=== PATIENT | female | born 1960 | race African-American/Black ===

== ENCOUNTER 2018-09-26 10:02 | Emergency (ER) | payer OTHER, MEDICAID, SELFPAY ==
[2018-09-26 10:05] VITALS: BP 180/97; PULSE 75; RESP 20; TEMP 37; O2SAT 97; BMI 35.5
[2018-09-26 11:57] VITALS: BP 171/90; PULSE 58; RESP 15; O2SAT 97
--- NOTE | 2018-09-26 12:19 | ED.ABDPAIN ---
HPI - Abdominal Pain <ARCADIO Mojica-BC - Last Filed: 09/26/18 19:26> General Chief Complaint: Abdominal Pain Stated Complaint: states blood coming for rectum Time Seen by Provider: 09/26/18 12:06 Source: patient and family Mode of arrival: ambulatory Limitations: no limitations History of Present Illness HPI narrative: Patient is a 57-year-old female nonsmoker presents with her daughter with a chief complaint of epigastric pain radiating around her right and left side since yesterday. She complains of associated nausea but denies any vomiting, diarrhea, chest pain. She states that the pain starts in her epigastric area radiating around the sides but does not radiate anywhere else. She states that she was seen as an outpatient at [facility] in [place], diagnosed with a likely gastric ulcer and started on Prilosec. This occurred on Thursday and she had blood work done, but has not received the results yet. She also complains of bright red blood per rectum that started this morning. She denies any lightheadedness or dizziness, but states that the pain is an 8/10. She denies any fever, dysuria urgency or frequency. She denies any medical history or surgeries, but chart review illustrate a history of hypertension and chest pain. Related Data Previous Rx's Medication Instructions Recorded sucralfate 1 gram PO QACHS #40 tab 09/26/18 Allergies Allergy/AdvReac Type Severity Reaction Status Date / Time cyclobenzaprine Allergy Verified 09/26/18 10:28 [From Flexeril] chlorthalidone AdvReac Severe Polycythemi Verified 09/26/18 10:26 [CHLORTHALIDONE] a hydrochlorothiazide AdvReac Severe Polycythemi Verified 09/26/18 10:26 [HYDROCHLOROTHIAZIDE] a amoxicillin [From AUGMENTIN] AdvReac Intermediate diarrhea Verified 09/26/18 10:26 stomach cramping clavulanic acid AdvReac Intermediate diarrhea Verified 09/26/18 10:26 [From AUGMENTIN] stomach cramping Review of Systems <MARK ANTHONY Mojica - Last Filed: 09/26/18 19:26> Review of Systems GENERAL: Denies chills, fatigue, malaise, fever, sweats. HEENT: Denies sinus pain, ear pain, sore throat, difficulty swallowing, dizziness. RESPIRATORY: Denies dyspnea, cough, wheezing, hemoptysis, sputum. CARDIOVASCULAR: Denies chest pain, palpitations, orthopnea, edema, GASTROINTESTINAL: See HPI : Denies dysuria, frequency, incontinence, hematuria, urinary retention. MUSCULOSKELETAL: denies weakness, joint pain, or bony pain SKIN: Denies rash, skin lesions, or other NEUROLOGIC: Denies weakness, headache, numbness, change in speech, confusion, seizures, incoordination. PSYCHIATRIC: No concerning psychosocial issues. 12 point review of systems is negative except for those stated above Exam <Joi Urban, ORTHOTICS TECHNICIAN-BC - Last Filed: 09/26/18 19:26> Narrative Exam Narrative: GENERAL: This is a obese patient, in mild distress. HEAD: Atraumatic. Normocephalic. No temporal or scalp tenderness. EYES: Pupils equal round and reactive. Extraocular motions intact. No scleral icterus. No injection or drainage. ENT: Nose without bleeding, purulent drainage or septal hematoma. Throat without erythema, tonsillar hypertrophy or exudate. Uvula midline. Airway patent. NECK: Trachea midline. No JVD or lymphadenopathy. Supple, nontender, no meningeal signs. CARDIOVASCULAR: Regular rate and rhythm without murmurs, gallops, or rubs. RESPIRATORY: Clear to auscultation. Breath sounds equal bilaterally. No wheezes, rales, or rhonchi. GASTROINTESTINAL: Active bowel sounds all 4 quadrants. Abdomen soft, nondistended. No hepato-splenomegaly, or palpable masses. Pain on palpation epigastric area, right upper quadrant and left upper quadrant. No pain on palpation right lower or left lower quadrants or suprapubic area. Positive [place] sign. No anal fissure, external hemorrhoid on rectal exam. No bessie red blood on rectal exam or palpable internal hemorrhoids. Rectal exam performed with Jannet RN as slat pickler. EXTREMITIES: No clubbing, cyanosis, or edema. No joint tenderness, effusion, or edema noted. BACK: Nontender without deformity or crepitance. No flank tenderness. NEURO: AOx3. SKIN: No rash or erythema. Initial Vital Signs Initial Vital Signs: Vital Signs Temperature 98.6 F 09/26/18 10:05 Pulse Rate 75 09/26/18 10:05 Respiratory Rate 20 09/26/18 10:05 Blood Pressure 180/97 H 09/26/18 10:05 Pulse Oximetry 97 09/26/18 10:05 <Ezio Gilman DO - Last Filed: 10/02/18 07:06> Initial Vital Signs Initial Vital Signs: Vital Signs Temperature 98.6 F 09/26/18 10:05 Pulse Rate 75 09/26/18 10:05 Respiratory Rate 20 09/26/18 10:05 Blood Pressure 180/97 H 09/26/18 10:05 Pulse Oximetry 97 09/26/18 10:05 Procedures <MARK ANTHONY Mojica - Last Filed: 09/26/18 19:26> Stool Hemoccult Procedural Steps Taken: stool placed in appropriate test area, developer placed on stool and control areas and controls appropriately positive and negative Hemoccult result: negative Course <MARK ANTHONY Mojica - Last Filed: 09/26/18 19:26> Course Narrative: I checked on the patient several times throughout her stay in the emergency department. Given her heme-negative stool, I discussed the possibility that the blood was coming from her vagina rather than her rectum. We discussed the possibility that could be vaginal, but she does not have any blood in her urine. We discussed doing a pelvic exam to evaluate for vaginal bleeding, but she declined at this point time saying she would rather follow up with her primary care provider. Orders Ordered: Discontinued Medications Al Hydrox/Mg Hydrox/Simethicone 20 ml/ Lidocaine HCl 15 ml 0 ml PO NOW ONE Stop: 09/26/18 13:23 Last Admin: 09/26/18 13:31 Dose: 35 ml Pantoprazole Sodium (Protonix) 40 mg IV NOW ONE Stop: 09/26/18 13:23 Last Admin: 09/26/18 13:31 Dose: 40 mg Vital Signs - 8 hr 09/26/18 11:57 09/26/18 13:00 09/26/18 14:00 Pulse Rate 58 L 60 67 Respiratory Rate 15 22 20 Blood Pressure [Left Arm] 171/90 H 124/86 138/75 Pulse Oximetry 97 97 99 09/26/18 15:30 Pulse Rate 61 Respiratory Rate 20 Blood Pressure [Left Arm] 150/83 H Pulse Oximetry <Ezio Gilman DO - Last Filed: 10/02/18 07:06> Orders Ordered: Discontinued Medications Al Hydrox/Mg Hydrox/Simethicone 20 ml/ Lidocaine HCl 15 ml 0 ml PO NOW ONE Stop: 09/26/18 13:23 Last Admin: 09/26/18 13:31 Dose: 35 ml Pantoprazole Sodium (Protonix) 40 mg IV NOW ONE Stop: 09/26/18 13:23 Last Admin: 09/26/18 13:31 Dose: 40 mg Vital Signs - 8 hr 09/26/18 11:57 09/26/18 13:00 09/26/18 14:00 Pulse Rate 58 L 60 67 Respiratory Rate 15 22 20 Blood Pressure [Left Arm] 171/90 H 124/86 138/75 Pulse Oximetry 97 97 99 09/26/18 15:30 Pulse Rate 61 Respiratory Rate 20 Blood Pressure [Left Arm] 150/83 H Pulse Oximetry MDM - Abdominal Pain <ARCADIO Mojica- - Last Filed: 09/26/18 19:26> Lab Data Result diagrams: 09/26/18 12:45 09/26/18 12:45 Lab Results 09/26/18 09/26/18 09/26/18 Range/Units 12:45 12:45 12:45 WBC 4.0 L (4.5-11.0) X10^3/uL RBC 5.43 H (4.0-5.2) X10^6/uL Hgb 14.8 (12.0-16.0) g/dL Hct 43.7 (36-46) % MCV 80.6 (80-100) fL MCH 27.3 (26-34) PG MCHC 33.9 (30-36) % RDW 13.4 (11.6-14.8) % Plt Count 214 (150-400) X10^3/uL Neut % (Auto) 52.1 (50-75) % Lymph % (Auto) 37.1 (25-40) % Tate % (Auto) 9.0 (3-14) % Eos % (Auto) 1.2 L (2-4) % Baso % (Auto) 0.6 (0-2) % Neut # (Auto) 2100 (8373-6989) /uL Lymph # (Auto) 1500 (5544-0773) /uL Tate # (Auto) 400 (0-900) /uL Eos # (Auto) 100 (0-450) /uL Baso # (Auto) 0 (0-100) /uL PT (10.1-12.7) SECONDS INR (0.9-1.3) Sodium 143 (137-145) mmol/L Potassium 4.2 (3.4-5.1) mmol/L Chloride 104 (98-107) mmol/L Carbon Dioxide 28 (22-32) mmol/L BUN 6 L (7-17) mg/dL Creatinine 0.60 (0.52-1.04) mg/dL Estimated GFR > 60.0 (>60) mL/min BUN/Creatinine Ratio 10.0 (6-22) Glucose 100 (70-100) mg/dL Calcium 9.2 (8.4-10.2) mg/dL Total Bilirubin 0.6 (0.2-1.3) mg/dL AST 21 (14-36) IU/L ALT 27 (9-52) IU/L Alkaline Phosphatase 114 (38-126) U/L Total Creatine Kinase (30-135) U/L CK-MB (CK-2) CK-MB (CK-2) Rel Index Troponin I (0.01-0.034) ng/mL Total Protein 8.0 (6.3-8.2) g/dL Albumin 4.3 (3.5-5.0) g/dL Globulin 3.7 (1.7-4.1) g/dL Albumin/Globulin Ratio 1.2 (1.0-2.8) Amylase Cancelled 78 Lipase 91 (23-300) U/L 09/26/18 09/26/18 Range/Units 12:45 12:45 WBC (4.5-11.0) X10^3/uL RBC (4.0-5.2) X10^6/uL Hgb (12.0-16.0) g/dL Hct (36-46) % MCV (80-100) fL MCH (26-34) PG MCHC (30-36) % RDW (11.6-14.8) % Plt Count (150-400) X10^3/uL Neut % (Auto) (50-75) % Lymph % (Auto) (25-40) % Tate % (Auto) (3-14) % Eos % (Auto) (2-4) % Baso % (Auto) (0-2) % Neut # (Auto) (3819-6880) /uL Lymph # (Auto) (5698-5737) /uL Tate # (Auto) (0-900) /uL Eos # (Auto) (0-450) /uL Baso # (Auto) (0-100) /uL PT 12.5 (10.1-12.7) SECONDS INR 1.1 (0.9-1.3) Sodium (137-145) mmol/L Potassium (3.4-5.1) mmol/L Chloride (98-107) mmol/L Carbon Dioxide (22-32) mmol/L BUN (7-17) mg/dL Creatinine (0.52-1.04) mg/dL Estimated GFR (>60) mL/min BUN/Creatinine Ratio (6-22) Glucose (70-100) mg/dL Calcium (8.4-10.2) mg/dL Total Bilirubin (0.2-1.3) mg/dL AST (14-36) IU/L ALT (9-52) IU/L Alkaline Phosphatase (38-126) U/L Total Creatine Kinase 64 (30-135) U/L CK-MB (CK-2) TNP CK-MB (CK-2) Rel Index TNP Troponin I < 0.012 (0.01-0.034) ng/mL Total Protein (6.3-8.2) g/dL Albumin (3.5-5.0) g/dL Globulin (1.7-4.1) g/dL Albumin/Globulin Ratio (1.0-2.8) Amylase Lipase (23-300) U/L Point of care testing: Urine Dip Bedside Urine Glucose Negative Bedside Urine Bilirubin - Negative Bedside Urine Ketone - Negative Urine Specific [place] 1.010 Bedside Urine Occult Blood - Negative Bedside Urine pH 8.5 Bedside Urine Protein - Negative Bedside Urine Urobilinogen - Negative Bedside Urine Nitrite - Negative Bedside Urine Leukocytes - Negative Esterase Imaging Data US - abdomen: Radiologist's impression: [address] [address] Ultrasound Report Signed Patient: Mirta Cerda CMR#: [id number] : 1Acct:[id number] Age/Sex: 57 / FDate of Service: 09/26/18 Loc: ED Accession Number: [id number] Procedure: US abdomen complete Ordering Provider: Joi Urban ORTHOTICS TECHNICIAN-BC PROCEDURE: US ABDOMEN COMPLETE INDICATIONS: epigastric, RUQ pain TECHNIQUE: Real-time scanning was performed of the abdominal and retroperitoneal organs, with image documentation. COMPARISON: [facility], CT, PE STUDY (CTA CHEST), 07/11/2013, 9:51. FINDINGS: Liver: Liver is normal in size and demonstrates diffusely increased echotexture. Gallbladder: No gallstones. No gallbladder wall thickening, pericholecystic fluid or sonographic Cheng's sign. Biliary ducts: Intrahepatic bile ducts are non-dilated. Extrahepatic bile duct caliber measures 7 mm. Normal is 6-7 mm or less in diameter, or 10 mm or less post-cholecystectomy. Pancreas: Visualized portions of the pancreas are sonographically normal. Spleen: Spleen is normal in size and homogeneous in echotexture. Kidneys: Kidneys are normal in size and echotexture. Right kidney measures 12.3 cm long; left kidney measures 14.0 cm long. No hydronephrosis or nephrolithiasis. No solid masses. Aorta: Visualized aorta is normal in caliber at less than 3 cm. Iliacs: Proximal common iliac arteries are obscured by overlying bowel gas. IVC: Intrahepatic inferior vena cava is patent. Miscellaneous: No free abdominal fluid. IMPRESSION: 1. Diffusely increased hepatic echotexture. This finding is most likely secondary to hepatic fatty infiltration although other hepatocellular disease may have a similar appearance. Recommend clinical correlation. 2. Normal gallbladder. Dictated by: Galen Joshi M.D. on 09/26/2018 at 14:13 Approved by: Galen Joshi M.D. on 09/26/2018 at 14:15 ECG Data Attestation: I personally reviewed and interpreted this ECG as follows: Prior ECG tracings: available for review Interpretation: VENTRICULAR RATE 54. SINUS BRADYCARDIA. NO ECTOPY. NO ST ELEVATION OR DEPRESSION. MDM Narrative Medical decision making narrative: The patient presented with a chief complaint of abdominal pain and bright red blood per rectum. We did a CBC, CMP, amylase and lipase. Given her positive Cheng sign, a right upper quadrant ultrasound was done which showed a normal gallbladder. She did respond well to a GI cocktail and IV Protonix. She did not have any heme-positive stool on rectal exam. She remained hemodynamically stable throughout her stay in the emergency department, did not have a low H&H, was not tachycardic or hypotensive throughout. We discussed at length dietary changes including decreased acid, decrease coffee fried food or citrus. We discussed decreased spicy food. We discussed at length follow up with primary care provider as well as follow-up with GI on the as previously arranged. Patient had no questions or concerns upon discharge. We discussed at length return precautions to the emergency department including chest pain shortness of breath or acute concerns. Given that she is already on omeprazole, we decided to initiate Carafate q.i.d. at this point time. Patient family had no questions or concerns. She ambulated steadily outside of the emergency department. <Ezio Gilman, DO - Last Filed: 10/02/18 07:06> Lab Data Lab Results 09/26/18 09/26/18 09/26/18 Range/Units 12:45 12:45 12:45 WBC 4.0 L (4.5-11.0) X10^3/uL RBC 5.43 H (4.0-5.2) X10^6/uL Hgb 14.8 (12.0-16.0) g/dL Hct 43.7 (36-46) % MCV 80.6 (80-100) fL MCH 27.3 (26-34) PG MCHC 33.9 (30-36) % RDW 13.4 (11.6-14.8) % Plt Count 214 (150-400) X10^3/uL Neut % (Auto) 52.1 (50-75) % Lymph % (Auto) 37.1 (25-40) % Tate % (Auto) 9.0 (3-14) % Eos % (Auto) 1.2 L (2-4) % Baso % (Auto) 0.6 (0-2) % Neut # (Auto) 2100 (0035-4839) /uL Lymph # (Auto) 1500 (2255-7760) /uL Tate # (Auto) 400 (0-900) /uL Eos # (Auto) 100 (0-450) /uL Baso # (Auto) 0 (0-100) /uL PT (10.1-12.7) SECONDS INR (0.9-1.3) Sodium 143 (137-145) mmol/L Potassium 4.2 (3.4-5.1) mmol/L Chloride 104 (98-107) mmol/L Carbon Dioxide 28 (22-32) mmol/L BUN 6 L (7-17) mg/dL Creatinine 0.60 (0.52-1.04) mg/dL Estimated GFR > 60.0 (>60) mL/min BUN/Creatinine Ratio 10.0 (6-22) Glucose 100 (70-100) mg/dL Calcium 9.2 (8.4-10.2) mg/dL Total Bilirubin 0.6 (0.2-1.3) mg/dL AST 21 (14-36) IU/L ALT 27 (9-52) IU/L Alkaline Phosphatase 114 (38-126) U/L Total Creatine Kinase (30-135) U/L CK-MB (CK-2) CK-MB (CK-2) Rel Index Troponin I (0.01-0.034) ng/mL Total Protein 8.0 (6.3-8.2) g/dL Albumin 4.3 (3.5-5.0) g/dL Globulin 3.7 (1.7-4.1) g/dL Albumin/Globulin Ratio 1.2 (1.0-2.8) Amylase Cancelled 78 Lipase 91 (23-300) U/L 09/26/18 09/26/18 Range/Units 12:45 12:45 WBC (4.5-11.0) X10^3/uL RBC (4.0-5.2) X10^6/uL Hgb (12.0-16.0) g/dL Hct (36-46) % MCV (80-100) fL MCH (26-34) PG MCHC (30-36) % RDW (11.6-14.8) % Plt Count (150-400) X10^3/uL Neut % (Auto) (50-75) % Lymph % (Auto) (25-40) % Tate % (Auto) (3-14) % Eos % (Auto) (2-4) % Baso % (Auto) (0-2) % Neut # (Auto) (1959-6809) /uL Lymph # (Auto) (6455-6415) /uL Tate # (Auto) (0-900) /uL Eos # (Auto) (0-450) /uL Baso # (Auto) (0-100) /uL PT 12.5 (10.1-12.7) SECONDS INR 1.1 (0.9-1.3) Sodium (137-145) mmol/L Potassium (3.4-5.1) mmol/L Chloride (98-107) mmol/L Carbon Dioxide (22-32) mmol/L BUN (7-17) mg/dL Creatinine (0.52-1.04) mg/dL Estimated GFR (>60) mL/min BUN/Creatinine Ratio (6-22) Glucose (70-100) mg/dL Calcium (8.4-10.2) mg/dL Total Bilirubin (0.2-1.3) mg/dL AST (14-36) IU/L ALT (9-52) IU/L Alkaline Phosphatase (38-126) U/L Total Creatine Kinase 64 (30-135) U/L CK-MB (CK-2) TNP CK-MB (CK-2) Rel Index TNP Troponin I < 0.012 (0.01-0.034) ng/mL Total Protein (6.3-8.2) g/dL Albumin (3.5-5.0) g/dL Globulin (1.7-4.1) g/dL Albumin/Globulin Ratio (1.0-2.8) Amylase Lipase (23-300) U/L Point of care testing: Urine Dip Bedside Urine Glucose Negative Bedside Urine Bilirubin - Negative Bedside Urine Ketone - Negative Urine Specific [place] 1.010 Bedside Urine Occult Blood - Negative Bedside Urine pH 8.5 Bedside Urine Protein - Negative Bedside Urine Urobilinogen - Negative Bedside Urine Nitrite - Negative Bedside Urine Leukocytes - Negative Esterase Discharge Plan Departure Patient Disposition: Home Clinical Impression: Abdominal pain, Gastroesophageal reflux disease Discharge Date/Time: 09/26/18 16:13 Interventions: ED Discharge Assessment Last Done: 09/26/18 16:12 Instructions: Gastroesophageal Reflux Disease (Alternative Therapy), DI for Gastroesophageal Reflux Disease (GERD), DI for Abdominal Pain-Adult Activity Restrictions/Additional Instructions: Your labs came back normal today and your EKG looks good. You responded well to an acid reduction medication, so I am adding another acid medication to the medication you are already take for your suspected ulcer and acid. Please pay careful attention to her diet. Please follow-up with your primary care provider as soon as possible and follow up with your principal embedded software engineer as scheduled. If you have any acute concerns including sudden worsening terrible abdominal pain, chest pain or shortness of breath or concerned about heart attack or stroke please come back to the emergency department. Prescriptions: New sucralfate 1 gram tablet 1 gram PO QACHS Qty: 40 RF: 0 Referrals: Apple Abraham PA-C [Primary Care Provider] - <Ezio Gilman DO - Last Filed: 10/02/18 07:06> Cosign ED Attending Jonathan Attestation: I was available for consultation during this patient's emergency department encounter
--- NOTE | 2018-09-26 12:22 | ED_ITS ---
HPI - Abdominal Pain <ARCADIO Mojica-BC - Last Filed: 09/26/18 19:26> General Chief Complaint: Abdominal Pain Stated Complaint: states blood coming for rectum Time Seen by Provider: 09/26/18 12:06 Source: patient and family Mode of arrival: ambulatory Limitations: no limitations History of Present Illness HPI narrative: Patient is a 57-year-old female nonsmoker presents with her daughter with a chief complaint of epigastric pain radiating around her right and left side since yesterday. She complains of associated nausea but denies any vomiting, diarrhea, chest pain. She states that the pain starts in her epigastric area radiating around the sides but does not radiate anywhere else. She states that she was seen as an outpatient at [facility] in [place], diagnosed with a likely gastric ulcer and started on Prilosec. This occurred on Thursday and she had blood work done, but has not received the results yet. She also complains of bright red blood per rectum that started this morning. She denies any lightheadedness or dizziness, but states that the pain is an 8/ 10. She denies any fever, dysuria urgency or frequency. She denies any medical history or surgeries, but chart review illustrate a history of hypertension and chest pain. Related Data Previous Rx's Medication Instructions Recorded sucralfate 1 gram PO QACHS #40 tab 09/26/18 Allergies Allergy/AdvReac Type Severity Reaction Status Date / Time cyclobenzaprine Allergy Verified 09/26/18 10:28 [From Flexeril] chlorthalidone AdvReac Severe Polycythemi Verified 09/26/18 10:26 [CHLORTHALIDONE] a hydrochlorothiazide AdvReac Severe Polycythemi Verified 09/26/18 10:26 [HYDROCHLOROTHIAZIDE] a amoxicillin [From AUGMENTIN] AdvReac Intermediate diarrhea Verified 09/26/18 10: 26 stomach cramping clavulanic acid AdvReac Intermediate diarrhea Verified 09/26/18 10:26 [From AUGMENTIN] stomach cramping Review of Systems <MARK ANTHONY Mojica - Last Filed: 09/26/18 19:26> Review of Systems GENERAL: Denies chills, fatigue, malaise, fever, sweats. HEENT: Denies sinus pain, ear pain, sore throat, difficulty swallowing, dizziness. RESPIRATORY: Denies dyspnea, cough, wheezing, hemoptysis, sputum. CARDIOVASCULAR: Denies chest pain, palpitations, orthopnea, edema, GASTROINTESTINAL: See HPI : Denies dysuria, frequency, incontinence, hematuria, urinary retention. MUSCULOSKELETAL: denies weakness, joint pain, or bony pain SKIN: Denies rash, skin lesions, or other NEUROLOGIC: Denies weakness, headache, numbness, change in speech, confusion, seizures, incoordination. PSYCHIATRIC: No concerning psychosocial issues. 12 point review of systems is negative except for those stated above Exam <Joi Urban, EMPLOYMENT EVALUATOR/CASE MANAGER-BC - Last Filed: 09/26/18 19:26> Narrative Exam Narrative: GENERAL: This is a obese patient, in mild distress. HEAD: Atraumatic. Normocephalic. No temporal or scalp tenderness. EYES: Pupils equal round and reactive. Extraocular motions intact. No scleral icterus. No injection or drainage. ENT: Nose without bleeding, purulent drainage or septal hematoma. Throat without erythema, tonsillar hypertrophy or exudate. Uvula midline. Airway patent. NECK: Trachea midline. No JVD or lymphadenopathy. Supple, nontender, no meningeal signs. CARDIOVASCULAR: Regular rate and rhythm without murmurs, gallops, or rubs. RESPIRATORY: Clear to auscultation. Breath sounds equal bilaterally. No wheezes , rales, or rhonchi. GASTROINTESTINAL: Active bowel sounds all 4 quadrants. Abdomen soft, nondistended. No hepato-splenomegaly, or palpable masses. Pain on palpation epigastric area, right upper quadrant and left upper quadrant. No pain on palpation right lower or left lower quadrants or suprapubic area. Positive [place] sign. No anal fissure, external hemorrhoid on rectal exam. No bessie red blood on rectal exam or palpable internal hemorrhoids. Rectal exam performed with Jannet RN as roll tension tester. EXTREMITIES: No clubbing, cyanosis, or edema. No joint tenderness, effusion, or edema noted. BACK: Nontender without deformity or crepitance. No flank tenderness. NEURO: AOx3. SKIN: No rash or erythema. Initial Vital Signs Initial Vital Signs: Vital Signs Temperature 98.6 F 09/26/18 10:05 Pulse Rate 75 09/26/18 10:05 Respiratory Rate 20 09/26/18 10:05 Blood Pressure 180/97 H 09/26/18 10:05 Pulse Oximetry 97 09/26/18 10:05 <Ezio Gilman DO - Last Filed: 10/02/18 07:06> Initial Vital Signs Initial Vital Signs: Vital Signs Temperature 98.6 F 09/26/18 10:05 Pulse Rate 75 09/26/18 10:05 Respiratory Rate 20 09/26/18 10:05 Blood Pressure 180/97 H 09/26/18 10:05 Pulse Oximetry 97 09/26/18 10:05 Procedures <MARK ANTHONY Mojica - Last Filed: 09/26/18 19:26> Stool Hemoccult Procedural Steps Taken: stool placed in appropriate test area, developer placed on stool and control areas and controls appropriately positive and negative Hemoccult result: negative Course <MARK ANTHONY Mojica - Last Filed: 09/26/18 19:26> Course Narrative: I checked on the patient several times throughout her stay in the emergency department. Given her heme-negative stool, I discussed the possibility that the blood was coming from her vagina rather than her rectum. We discussed the possibility that could be vaginal, but she does not have any blood in her urine. We discussed doing a pelvic exam to evaluate for vaginal bleeding, but she declined at this point time saying she would rather follow up with her primary care provider. Orders Ordered: Discontinued Medications Al Hydrox/Mg Hydrox/Simethicone 20 ml/ Lidocaine HCl 15 ml 0 ml PO NOW ONE Stop: 09/26/18 13:23 Last Admin: 09/26/18 13:31 Dose: 35 ml Pantoprazole Sodium (Protonix) 40 mg IV NOW ONE Stop: 09/26/18 13:23 Last Admin: 09/26/18 13:31 Dose: 40 mg Vital Signs - 8 hr 09/26/18 11:57 09/26/18 13:00 09/26/18 14:00 Pulse Rate 58 L 60 67 Respiratory Rate 15 22 20 Blood Pressure [Left Arm] 171/90 H 124/86 138/75 Pulse Oximetry 97 97 99 09/26/18 15:30 Pulse Rate 61 Respiratory Rate 20 Blood Pressure [Left Arm] 150/83 H Pulse Oximetry <Ezio Gilman DO - Last Filed: 10/02/18 07:06> Orders Ordered: Discontinued Medications Al Hydrox/Mg Hydrox/Simethicone 20 ml/ Lidocaine HCl 15 ml 0 ml PO NOW ONE Stop: 09/26/18 13:23 Last Admin: 09/26/18 13:31 Dose: 35 ml Pantoprazole Sodium (Protonix) 40 mg IV NOW ONE Stop: 09/26/18 13:23 Last Admin: 09/26/18 13:31 Dose: 40 mg Vital Signs - 8 hr 09/26/18 11:57 09/26/18 13:00 09/26/18 14:00 Pulse Rate 58 L 60 67 Respiratory Rate 15 22 20 Blood Pressure [Left Arm] 171/90 H 124/86 138/75 Pulse Oximetry 97 97 99 09/26/18 15:30 Pulse Rate 61 Respiratory Rate 20 Blood Pressure [Left Arm] 150/83 H Pulse Oximetry MDM - Abdominal Pain <ARCADIO Mojica- - Last Filed: 09/26/18 19:26> Lab Data Result diagrams: 09/26/18 12:45 09/26/18 12:45 Lab Results 09/26/18 09/26/18 09/26/18 Range/Units 12:45 12:45 12:45 WBC 4.0 L (4.5-11.0) X10^3/uL RBC 5.43 H (4.0-5.2) X10^6/uL Hgb 14.8 (12.0-16.0) g/dL Hct 43.7 (36-46) % MCV 80.6 (80-100) fL MCH 27.3 (26-34) PG MCHC 33.9 (30-36) % RDW 13.4 (11.6-14.8) % Plt Count 214 (150-400) X10^3/uL Neut % (Auto) 52.1 (50-75) % Lymph % (Auto) 37.1 (25-40) % Tift % (Auto) 9.0 (3-14) % Eos % (Auto) 1.2 L (2-4) % Baso % (Auto) 0.6 (0-2) % Neut # (Auto) 2100 (2177-0047) /uL Lymph # (Auto) 1500 (9662-6976) /uL Tift # (Auto) 400 (0-900) /uL Eos # (Auto) 100 (0-450) /uL Baso # (Auto) 0 (0-100) /uL PT (10.1-12.7) SECONDS INR (0.9-1.3) Sodium 143 (137-145) mmol/L Potassium 4.2 (3.4-5.1) mmol/L Chloride 104 (98-107) mmol/L Carbon Dioxide 28 (22-32) mmol/L BUN 6 L (7-17) mg/dL Creatinine 0.60 (0.52-1.04) mg/dL Estimated GFR > 60.0 (>60) mL/min BUN/Creatinine Ratio 10.0 (6-22) Glucose 100 (70-100) mg/dL Calcium 9.2 (8.4-10.2) mg/dL Total Bilirubin 0.6 (0.2-1.3) mg/dL AST 21 (14-36) IU/L ALT 27 (9-52) IU/L Alkaline Phosphatase 114 (38-126) U/L Total Creatine Kinase (30-135) U/L CK-MB (CK-2) CK-MB (CK-2) Rel Index Troponin I (0.01-0.034) ng/mL Total Protein 8.0 (6.3-8.2) g/dL Albumin 4.3 (3.5-5.0) g/dL Globulin 3.7 (1.7-4.1) g/dL Albumin/Globulin Ratio 1.2 (1.0-2.8) Amylase Cancelled 78 Lipase 91 (23-300) U/L 09/26/18 09/26/18 Range/Units 12:45 12:45 WBC (4.5-11.0) X10^3/uL RBC (4.0-5.2) X10^6/uL Hgb (12.0-16.0) g/dL Hct (36-46) % MCV (80-100) fL MCH (26-34) PG MCHC (30-36) % RDW (11.6-14.8) % Plt Count (150-400) X10^3/uL Neut % (Auto) (50-75) % Lymph % (Auto) (25-40) % Tift % (Auto) (3-14) % Eos % (Auto) (2-4) % Baso % (Auto) (0-2) % Neut # (Auto) (4163-8394) /uL Lymph # (Auto) (7672-3028) /uL Tift # (Auto) (0-900) /uL Eos # (Auto) (0-450) /uL Baso # (Auto) (0-100) /uL PT 12.5 (10.1-12.7) SECONDS INR 1.1 (0.9-1.3) Sodium (137-145) mmol/L Potassium (3.4-5.1) mmol/L Chloride (98-107) mmol/L Carbon Dioxide (22-32) mmol/L BUN (7-17) mg/dL Creatinine (0.52-1.04) mg/dL Estimated GFR (>60) mL/min BUN/Creatinine Ratio (6-22) Glucose (70-100) mg/dL Calcium (8.4-10.2) mg/dL Total Bilirubin (0.2-1.3) mg/dL AST (14-36) IU/L ALT (9-52) IU/L Alkaline Phosphatase (38-126) U/L Total Creatine Kinase 64 (30-135) U/L CK-MB (CK-2) TNP CK-MB (CK-2) Rel Index TNP Troponin I < 0.012 (0.01-0.034) ng/mL Total Protein (6.3-8.2) g/dL Albumin (3.5-5.0) g/dL Globulin (1.7-4.1) g/dL Albumin/Globulin Ratio (1.0-2.8) Amylase Lipase (23-300) U/L Point of care testing: Urine Dip Bedside Urine Glucose Negative Bedside Urine Bilirubin - Negative Bedside Urine Ketone - Negative Urine Specific [place] 1.010 Bedside Urine Occult Blood - Negative Bedside Urine pH 8.5 Bedside Urine Protein - Negative Bedside Urine Urobilinogen - Negative Bedside Urine Nitrite - Negative Bedside Urine Leukocytes - Negative Esterase Imaging Data US - abdomen: Radiologist's impression: [address] [address] Ultrasound Report Signed Patient: Mirta Cerda CMR#: [id number] : 1Acct:[id number] Age/Sex: 57 / FDate of Service: 09/26/18 Loc: ED Accession Number: [id number] Procedure: US abdomen complete Ordering Provider: Joi Urban EMPLOYMENT EVALUATOR/CASE MANAGER-BC PROCEDURE: US ABDOMEN COMPLETE INDICATIONS: epigastric, RUQ pain TECHNIQUE: Real-time scanning was performed of the abdominal and retroperitoneal organs, with image documentation. COMPARISON: Merged With [facility], CT, PE STUDY (CTA CHEST), 07/11/2013, 9:51. FINDINGS: Liver: Liver is normal in size and demonstrates diffusely increased echotexture. Gallbladder: No gallstones. No gallbladder wall thickening, pericholecystic fluid or sonographic Cheng's sign. Biliary ducts: Intrahepatic bile ducts are non-dilated. Extrahepatic bile duct caliber measures 7 mm. Normal is 6-7 mm or less in diameter, or 10 mm or less post-cholecystectomy. Pancreas: Visualized portions of the pancreas are sonographically normal. Spleen: Spleen is normal in size and homogeneous in echotexture. Kidneys: Kidneys are normal in size and echotexture. Right kidney measures 12.3 cm long; left kidney measures 14.0 cm long. No hydronephrosis or nephrolithiasis. No solid masses. Aorta: Visualized aorta is normal in caliber at less than 3 cm. Iliacs: Proximal common iliac arteries are obscured by overlying bowel gas. IVC: Intrahepatic inferior vena cava is patent. Miscellaneous: No free abdominal fluid. IMPRESSION: 1. Diffusely increased hepatic echotexture. This finding is most likely secondary to hepatic fatty infiltration although other hepatocellular disease may have a similar appearance. Recommend clinical correlation. 2. Normal gallbladder. Dictated by: Galen Joshi M.D. on 09/26/2018 at 14:13 Approved by: Galen Joshi M.D. on 09/26/2018 at 14:15 ECG Data Attestation: I personally reviewed and interpreted this ECG as follows: Prior ECG tracings: available for review Interpretation: VENTRICULAR RATE 54. SINUS BRADYCARDIA. NO ECTOPY. NO ST ELEVATION OR DEPRESSION. MDM Narrative Medical decision making narrative: The patient presented with a chief complaint of abdominal pain and bright red blood per rectum. We did a CBC, CMP, amylase and lipase. Given her positive Cheng sign, a right upper quadrant ultrasound was done which showed a normal gallbladder. She did respond well to a GI cocktail and IV Protonix. She did not have any heme-positive stool on rectal exam. She remained hemodynamically stable throughout her stay in the emergency department, did not have a low H&H, was not tachycardic or hypotensive throughout. We discussed at length dietary changes including decreased acid, decrease coffee fried food or citrus. We discussed decreased spicy food. We discussed at length follow up with primary care provider as well as follow-up with GI on the as previously arranged. Patient had no questions or concerns upon discharge. We discussed at length return precautions to the emergency department including chest pain shortness of breath or acute concerns. Given that she is already on omeprazole, we decided to initiate Carafate q.i.d. at this point time. Patient family had no questions or concerns. She ambulated steadily outside of the emergency department. <Ezio Gilman, DO - Last Filed: 10/02/18 07:06> Lab Data Lab Results 09/26/18 09/26/18 09/26/18 Range/Units 12:45 12:45 12:45 WBC 4.0 L (4.5-11.0) X10^3/uL RBC 5.43 H (4.0-5.2) X10^6/uL Hgb 14.8 (12.0-16.0) g/dL Hct 43.7 (36-46) % MCV 80.6 (80-100) fL MCH 27.3 (26-34) PG MCHC 33.9 (30-36) % RDW 13.4 (11.6-14.8) % Plt Count 214 (150-400) X10^3/uL Neut % (Auto) 52.1 (50-75) % Lymph % (Auto) 37.1 (25-40) % Tift % (Auto) 9.0 (3-14) % Eos % (Auto) 1.2 L (2-4) % Baso % (Auto) 0.6 (0-2) % Neut # (Auto) 2100 (2321-7123) /uL Lymph # (Auto) 1500 (2814-5572) /uL Tift # (Auto) 400 (0-900) /uL Eos # (Auto) 100 (0-450) /uL Baso # (Auto) 0 (0-100) /uL PT (10.1-12.7) SECONDS INR (0.9-1.3) Sodium 143 (137-145) mmol/L Potassium 4.2 (3.4-5.1) mmol/L Chloride 104 (98-107) mmol/L Carbon Dioxide 28 (22-32) mmol/L BUN 6 L (7-17) mg/dL Creatinine 0.60 (0.52-1.04) mg/dL Estimated GFR > 60.0 (>60) mL/min BUN/Creatinine Ratio 10.0 (6-22) Glucose 100 (70-100) mg/dL Calcium 9.2 (8.4-10.2) mg/dL Total Bilirubin 0.6 (0.2-1.3) mg/dL AST 21 (14-36) IU/L ALT 27 (9-52) IU/L Alkaline Phosphatase 114 (38-126) U/L Total Creatine Kinase (30-135) U/L CK-MB (CK-2) CK-MB (CK-2) Rel Index Troponin I (0.01-0.034) ng/mL Total Protein 8.0 (6.3-8.2) g/dL Albumin 4.3 (3.5-5.0) g/dL Globulin 3.7 (1.7-4.1) g/dL Albumin/Globulin Ratio 1.2 (1.0-2.8) Amylase Cancelled 78 Lipase 91 (23-300) U/L 09/26/18 09/26/18 Range/Units 12:45 12:45 WBC (4.5-11.0) X10^3/uL RBC (4.0-5.2) X10^6/uL Hgb (12.0-16.0) g/dL Hct (36-46) % MCV (80-100) fL MCH (26-34) PG MCHC (30-36) % RDW (11.6-14.8) % Plt Count (150-400) X10^3/uL Neut % (Auto) (50-75) % Lymph % (Auto) (25-40) % Tift % (Auto) (3-14) % Eos % (Auto) (2-4) % Baso % (Auto) (0-2) % Neut # (Auto) (6177-9967) /uL Lymph # (Auto) (4130-4777) /uL Tift # (Auto) (0-900) /uL Eos # (Auto) (0-450) /uL Baso # (Auto) (0-100) /uL PT 12.5 (10.1-12.7) SECONDS INR 1.1 (0.9-1.3) Sodium (137-145) mmol/L Potassium (3.4-5.1) mmol/L Chloride (98-107) mmol/L Carbon Dioxide (22-32) mmol/L BUN (7-17) mg/dL Creatinine (0.52-1.04) mg/dL Estimated GFR (>60) mL/min BUN/Creatinine Ratio (6-22) Glucose (70-100) mg/dL Calcium (8.4-10.2) mg/dL Total Bilirubin (0.2-1.3) mg/dL AST (14-36) IU/L ALT (9-52) IU/L Alkaline Phosphatase (38-126) U/L Total Creatine Kinase 64 (30-135) U/L CK-MB (CK-2) TNP CK-MB (CK-2) Rel Index TNP Troponin I < 0.012 (0.01-0.034) ng/mL Total Protein (6.3-8.2) g/dL Albumin (3.5-5.0) g/dL Globulin (1.7-4.1) g/dL Albumin/Globulin Ratio (1.0-2.8) Amylase Lipase (23-300) U/L Point of care testing: Urine Dip Bedside Urine Glucose Negative Bedside Urine Bilirubin - Negative Bedside Urine Ketone - Negative Urine Specific [place] 1.010 Bedside Urine Occult Blood - Negative Bedside Urine pH 8.5 Bedside Urine Protein - Negative Bedside Urine Urobilinogen - Negative Bedside Urine Nitrite - Negative Bedside Urine Leukocytes - Negative Esterase Discharge Plan Departure Patient Disposition: Home Clinical Impression: Abdominal pain, Gastroesophageal reflux disease Discharge Date/Time: 09/26/18 16:13 Interventions: ED Discharge Assessment Last Done: 09/26/18 16:12 Instructions: Gastroesophageal Reflux Disease (Alternative Therapy), DI for Gastroesophageal Reflux Disease (GERD), DI for Abdominal Pain-Adult Activity Restrictions/Additional Instructions: Your labs came back normal today and your EKG looks good. You responded well to an acid reduction medication, so I am adding another acid medication to the medication you are already take for your suspected ulcer and acid. Please pay careful attention to her diet. Please follow-up with your primary care provider as soon as possible and follow up with your internet database specialist as scheduled. If you have any acute concerns including sudden worsening terrible abdominal pain, chest pain or shortness of breath or concerned about heart attack or stroke please come back to the emergency department. Prescriptions: New sucralfate 1 gram tablet 1 gram PO QACHS Qty: 40 RF: 0 Referrals: Apple Abraham PA-C [Primary Care Provider] - <Ezio Gilman DO - Last Filed: 10/02/18 07:06> Cosign ED Attending Jonathan Attestation: I was available for consultation during this patient's emergency department encounter
[2018-09-26 12:58] LABS: Add Manual Diff / Slide Review NO; Basophils Absolute Auto 0 /uL (0-100); Basophils Percent Auto 0.6 % (0-2); Eosinophils Absolute Auto 100 /uL (0-450); Eosinophils Percent Auto 1.2 % (2-4); Hematocrit 43.7 % (36-46); Hemoglobin 14.8 g/dL (12.0-16.0); Lymphocytes Absolute Auto 1500 /uL (1100-4500); Lymphocytes Percent Auto 37.1 % (25-40); Mean Corpuscular HGB Conc 33.9 % (30-36); Mean Corpuscular Hemoglobin 27.3 PG (26-34); Mean Corpuscular Volume 80.6 fL (80-100); Monocytes Absolute Auto 400 /uL (0-900); Neutrophils Absolute Auto 2100 /uL (1500-7000); Neutrophils Percent Auto 52.1 % (50-75); Platelet Count 214 X10^3/uL (150-400); Red Blood Cell Count 5.43 X10^6/uL (4.0-5.2); Red Cell Distribution Width 13.4 % (11.6-14.8)
[2018-09-26 13:00] VITALS: BP 124/86; PULSE 60; RESP 22; O2SAT 97
[2018-09-26 13:02] LABS: INR 1.1 (0.9-1.3); Prothrombin Time 12.5 SECONDS (10.1-12.7)
[2018-09-26 13:10] LABS: Creatine Kinase 64 U/L (30-135)
[2018-09-26 13:12] LABS: Alanine Aminotransferase 27 IU/L (9-52); Albumin 4.3 g/dL (3.5-5.0); Albumin Globulin Ratio 1.2 (1.0-2.8); Alkaline Phosphatase 114 U/L (38-126); Amylase 78 U/L (30-110); Aspartate Aminotransferase 21 IU/L (14-36); Bilirubin Total 0.6 mg/dL (0.2-1.3); Blood Urea Nitrogen 6 mg/dL (7-17); Calcium 9.2 mg/dL (8.4-10.2); Carbon Dioxide 28 mmol/L (22-32); Chloride 104 mmol/L (98-107); Estimated Glomerular Filt Rate > 60.0 mL/min (>60); Globulin 3.7 g/dL (1.7-4.1); Glucose 100 mg/dL (70-100); HEMOLYSIS < 15 (0-50); Lipase 91 U/L (23-300); Potassium 4.2 mmol/L (3.4-5.1); Sodium 143 mmol/L (137-145)
--- NOTE | 2018-09-26 13:22 | DI.US.S_ITS ---
PROCEDURE: US ABDOMEN COMPLETE INDICATIONS: epigastric, RUQ pain TECHNIQUE: Real-time scanning was performed of the abdominal and retroperitoneal organs, with image documentation. COMPARISON: [facility], CT, PE STUDY (CTA CHEST), 07/11/2013, 9:51. FINDINGS: Liver: Liver is normal in size and demonstrates diffusely increased echotexture. Gallbladder: No gallstones. No gallbladder wall thickening, pericholecystic fluid or sonographic Cheng's sign. Biliary ducts: Intrahepatic bile ducts are non-dilated. Extrahepatic bile duct caliber measures 7 mm. Normal is 6-7 mm or less in diameter, or 10 mm or less post-cholecystectomy. Pancreas: Visualized portions of the pancreas are sonographically normal. Spleen: Spleen is normal in size and homogeneous in echotexture. Kidneys: Kidneys are normal in size and echotexture. Right kidney measures 12.3 cm long; left kidney measures 14.0 cm long. No hydronephrosis or nephrolithiasis. No solid masses. Aorta: Visualized aorta is normal in caliber at less than 3 cm. Iliacs: Proximal common iliac arteries are obscured by overlying bowel gas. IVC: Intrahepatic inferior vena cava is patent. Miscellaneous: No free abdominal fluid. IMPRESSION: 1. Diffusely increased hepatic echotexture. This finding is most likely secondary to hepatic fatty infiltration although other hepatocellular disease may have a similar appearance. Recommend clinical correlation. 2. Normal gallbladder. Dictated by: Galen Joshi M.D. on 09/26/2018 at 14:13 Approved by: Galen Joshi M.D. on 09/26/2018 at 14:15
[2018-09-26 13:23] LABS: Troponin I < 0.012 ng/mL (0.01-0.034)
[2018-09-26] MEDS: PANTOPRAZOLE 40 MG VIAL IV (13:31)
[2018-09-26] MEDS: MAG HYDROX/ALUMINUM/SIMETH SUS 20 ML, LIDOCAINE VISCOUS 2% 15 ML PO (13:31)
[2018-09-26 14:00] VITALS: BP 138/75; PULSE 67; RESP 20; O2SAT 99
[2018-09-26 15:30] VITALS: BP 150/83; PULSE 61; RESP 20
== END 2018-09-26 16:13 | disposition home or self-care (01) ==
PROVIDERS: Emergency Provider Nurse Practitioner Family; Family Provider Physician Assistant; PCP Physician Assistant
DX: R10.9 Unspecified abdominal pain (principal); K21.9 Gastro-esophageal reflux disease without esophagitis
CPT/HCPCS: 36415; 76700; 80053; 81003; 82150; 82550; 83690; 84484; 85025; 85610; 93005; 96374; 99283; 99285; C9113

== ENCOUNTER 2025-08-21 10:42 | Emergency (ER) | payer OTHER, SELFPAY ==
[2025-08-21] VITALS (12 sets, daily range): BP systolic 124–153; BP diastolic 67–109; PULSE 64–87; RESP 12–23; TEMP 36.6; O2SAT 91–99; BMI 35.5
--- OUTSIDE RECORDS SUMMARY | 2025-08-21 10:44 | XMS_ITS | Encounter Summary ---
Author Organization [facility] Address [address] [place] [address] Care Team Providers Care Aerospace Products Sales Engineer Name Role Phone Pcp, None Selected Primary Care Provider Unavail able Encounter Details Date Type Department Care Team (Late st Contact Info) Description 02/06/2021 Orders Only [facility] [place] [address] [place] [phone] Reena Funes MA Chronic wrist pain, unspecified laterality (Primary Dx) Social History Tobacco Use Types Packs/Day Years Used Date Smoking Tobacco: Never Smokeless Tobacco: Never Comments Unknown Sex and Gender Information Value Date Recorded Sex Assigned at Not on file Legal Sex Female 7:06 PM PDT Gender Identity Not on file Sexual Orientation Not on file documented as of this encounter Plan of Treatment Not on file documented as of this encounter Visit Diagnoses Diagnosis Chronic wrist pain, unspecified laterality- Primary documented in this encounter Care Teams Aerospace Products Sales Engineer Relationship Specialty Start Date End Date Pcp, None Selected PCP - General Internal Medicine 11/24/21 documented as of this encounter
--- NOTE | 2025-08-21 10:58 | EKG_ITS ---
[place] [id number] [place] [id number] Test Date: 2025-08-21 Pat Name: Mirta Cerda Department: Room: Gender: Female Computer Installation Engineer: ASHISH : 1960 Requested By: Order Number: [id number] Reading MD: Valentin Mary MD Measurements Intervals [place] Rate: 91 P: 52 CO: 162 QRS: -14 QRSD: 76 T: 21 QT: 360 QTc: 442 Interpretive Statements Normal sinus rhythm Minimal voltage criteria for LVH, may be normal variant ( R in aVL ) Septal infarct , age undetermined Possible Lateral infarct , age undetermined Electronically Signed On 08-22-2025 7:41:29 PST by Valentin Mary MD
--- NOTE | 2025-08-21 10:58 | DI.RAD.S_ITS ---
PROCEDURE: XR CHEST 1V INDICATIONS: Chest Pain TECHNIQUE: One view of the chest was acquired. COMPARISON: None. FINDINGS: Surgical changes and devices: None. Lungs and pleura: Lungs are clear. No pleural effusions or pneumothorax. Mediastinum: Mediastinal contours appear normal. Heart size is normal. Bones and chest wall: No suspicious bony lesions. Overlying soft tissues appear unremarkable. IMPRESSION: No acute cardiopulmonary abnormality is seen. Approved by: Sharon Cameron M.D.,Ph.D. on 08/21/2025 at 12:51
[2025-08-21] MEDS: ASPIRIN 81 MG CHEW TAB 324 MG PO (11:08)
[2025-08-21 11:23] LABS: Add Manual Diff / Slide Review NO; Hematocrit 47.4 % (36-46); Hemoglobin 16.1 g/dL (12.0-16.0); Lymphocytes Absolute Auto 2000 /uL (1100-4500); Mean Corpuscular HGB Conc 34.0 % (30-36); Mean Corpuscular Hemoglobin 27.1 PG (26-34); Mean Corpuscular Volume 79.8 fL (80-100); Platelet Count 208 X10^3/uL (150-400)
[2025-08-21 11:33] LABS: INR 1.0 (0.9-1.3); Prothrombin Time 11.1 SECONDS (9.4-12.5)
[2025-08-21 11:35] LABS: PTT Partial Thromboplastin Tim 27 SECONDS (25.1-36.5)
[2025-08-21 11:39] LABS: Alanine Aminotransferase 35 IU/L (<35); Albumin 4.7 g/dL (3.5-5.0); Albumin Globulin Ratio 1.1 (1.0-2.8); Alkaline Phosphatase 128 U/L (38-126); Blood Urea Nitrogen 6 mg/dL (7-17); Calcium 9.5 mg/dL (8.4-10.2); Carbon Dioxide 26 mmol/L (22-32); Chloride 106 mmol/L (98-107); Creatine Kinase 87 U/L (30-135); Estimated Glomerular Filt Rate > 60 mL/min (>60); Globulin 4.3 g/dL (1.7-4.1); Glucose 173 mg/dL (70-99); HEMOLYSIS < 15 (0-50); Lipase 176 U/L (23-300); Magnesium 1.8 mg/dL (1.6-2.3); Potassium 4.0 mmol/L (3.4-5.1); Sodium 140 mmol/L (137-145); Total Protein 9.0 g/dL (6.3-8.2)
[2025-08-21 11:50] LABS: NT-proBNP (BNP-Adult 18+) < 20 pg/mL (<125); Troponin I < 0.012 ng/mL (0.01-0.034)
[2025-08-21] MEDS: KETOROLAC 30 MG/ML VIAL 15 MG IV (13:10)
[2025-08-21] MEDS: FAMOTIDINE 20 MG/2 ML VIAL 40 MG IV (13:10)
--- NOTE | 2025-08-21 13:34 | EKG_ITS ---
[address] [address] Test Date: 2025-08-21 Pat Name: Mirta Cerda Department: Room: Gender: Female Irrigation System Installer: LUZ : 1960 Requested By: Order Number: [id number] Reading MD: Valentin Mary MD Measurements Intervals [place] Rate: 64 P: 66 MT: 168 QRS: -6 QRSD: 82 T: 25 QT: 416 QTc: 429 Interpretive Statements Normal sinus rhythm Anterior infarct , age undetermined Electronically Signed On 08-22-2025 7:41:36 PST by Valentin Mary MD
--- NOTE | 2025-08-21 13:46 | ED.CHESTPAIN ---
HPI - Chest Pain <Venkata Bernal PA-C - Last Filed: 08/21/25 16:35> General Chief Complaint: Chest Pain Stated Complaint: Chest pain, this morning Time Seen by Provider: 08/21/25 11:09 Source: patient Mode of arrival: Ambulatory History of Present Illness HPI narrative: 64-year-old female with diabetes, hypertension presents to the ED with substernal chest pain since this morning. Patient states that she has been taking care of her little grandson who is quite heavy to lift. Patient suspects that she might have strained some chest muscles from frequently lifting him. Patient also has the sensation of acid indigestion. Patient's pain also moves from the chest into the epigastric region. Patient's pain is reproduced with movement and twisting. No pain with inspiration. No nausea, vomiting, fever, chills, shortness of breath. Related Data Previous Rx's ?Medication ?Instructions ?Recorded sucralfate 1 gram tablet 1 gram PO QAS #40 tabs 09/26/18 Allergies Allergy/AdvReac Type Severity Reaction Status Date / Time cyclobenzaprine (From Allergy Verified 08/21/25 10:53 Flexeril) chlorthalidone AdvReac Severe Polycythemi Verified 08/21/25 10:53 (CHLORTHALIDONE) a hydrochlorothiazide AdvReac Severe Polycythemi Verified 08/21/25 10:53 (HYDROCHLOROTHIAZIDE) a amoxicillin (From AUGMENTIN) AdvReac Intermediate diarrhea Verified 08/21/25 10:53 stomach cramping clavulanic acid (From AdvReac Intermediate diarrhea Verified 08/21/25 10:53 AUGMENTIN) stomach cramping Review of Systems <Venkata Bernal PA-C - Last Filed: 08/21/25 16:35> Constitutional Constitutional: Denies chills, Denies fatigue, Denies fever(s), Denies frequent falls, Denies lethargy and Denies weakness Eyes Eyes: Denies change in vision, Denies eye discharge, Denies irritation and Denies loss of vision ENT Ears, Nose, Mouth, and Throat: Denies change in voice, Denies dizziness, Denies neck pain, Denies sore throat and Denies throat swelling Cardiovascular Cardiovascular: Reports chest pain, Denies irregular heart rhythm, Denies lightheadedness, Denies palpitations, Denies dyspnea, Denies dyspnea on exertion and Denies orthopnea Respiratory Respiratory: Denies cough, Denies dyspnea, Denies dyspnea on exertion and Denies wheezing Gastrointestinal Gastrointestinal: Reports abdominal pain, Denies change in bowel habits, Denies diarrhea, Denies nausea and Denies vomiting Musculoskeletal Musculoskeletal: Denies neck pain and Denies numbness Integumentary/Breasts Skin/Breast: Denies pruritus, Denies erythema, Denies rash and Denies wounds Neurologic Neurologic: Denies behavioral changes, Denies confusion, Denies dizziness, Denies frequent falls, Denies loss of vision, Denies numbness and Denies weakness Psychiatric Psychiatric: Denies anxiety, Denies behavioral changes, Denies confusion, Denies depression, Denies homicidal ideation and Denies suicidal ideation Endocrine Endocrine: Denies fatigue, Denies flushing and Denies palpitations Hematologic/Lymphatic Hematologic/Lymphatic: Denies easy bruising Allergic/Immunologic Allergic/Immunologic: Denies urticaria, Denies throat swelling and Denies wheezing Patient History <Venkata Bernal PA-C - Last Filed: 08/21/25 16:35> Medical History HTN (hypertension) Social History Smoking Status: Smoker, status unknown Smoking Status: Smoker, status unknown Exam <Venkata Bernal PA-C - Last Filed: 08/21/25 16:35> Narrative Exam Narrative: Const General:?cooperative, healthy appearing and comfortable [facility] Head:?normal to inspection Ears:?hearing grossly normal bilaterally Nose:?external nose normal Face and sinus:?normal facial exam and sinuses nontender Mouth:?oral mucosae normal Throat:?posterior oropharynx normal Eyes General:?appearance normal, both eyes and all related structures Neck Neck:?normal visual inspection and no lymphadenopathy noted Resp Effort & Inspection:?normal respiratory effort Auscultation:?clear to auscultation bilaterally Cardio Rate:?regular rate Rhythm:?regular rhythm There is chest wall tenderness on palpation in the substernal region GI Abdomen is soft, nondistended, tender to palpation in the epigastric region. Neuro General:?patient alert, patient awake and patient oriented x3 Initial Vital Signs Initial Vital Signs: Vital Signs Temperature 98 F 08/21/25 10:53 Pulse Rate 87 12/22/25 10:53 Respiratory Rate 17 08/21/25 10:53 Blood Pressure 146/86 H 08/21/25 10:53 Pulse Oximetry 99 08/21/25 10:53 Oxygen Delivery Method Room Air 08/21/25 10:53 <Joi Will DO - Last Filed: 08/22/25 07:50> Initial Vital Signs Initial Vital Signs: Vital Signs Temperature 98 F 08/21/25 10:53 Pulse Rate 87 08/21/25 10:53 Respiratory Rate 17 08/21/25 10:53 Blood Pressure 146/86 H 08/21/25 10:53 Pulse Oximetry 99 08/21/25 10:53 Oxygen Delivery Method Room Air 08/21/25 10:53 Course <Venkata Bernal PA-C - Last Filed: 08/21/25 16:35> Orders Ordered: Discontinued Medications Aspirin (Aspirin 81 Mg Chew Tab) 324 mg PO NOW ONE Stop: 08/21/25 10:59 Last Admin: 08/21/25 11:08 Dose: 324 mg Documented By: GABBIE Al Hydrox/Mg Hydrox/Simethicone 30 ml/ Lidocaine HCl 15 ml 0 ml PO NOW ONE Stop: 08/21/25 12:36 Last Admin: 08/21/25 13:23 Dose: Not Given Documented By: CESAR Famotidine (Famotidine 20 Mg/2 Ml Vial) 40 mg IV NOW MANI Last Admin: 08/21/25 13:10 Dose: 40 mg Documented By: CESAR Ketorolac Tromethamine (Ketorolac 30 Mg/Ml Vial) 15 mg IV NOW ONE Stop: 08/21/25 13:03 Last Admin: 08/21/25 13:10 Dose: 15 mg Documented By: CESAR Vital Signs Vital signs: Vital Signs - 8 hr 08/21/25 10:53 08/21/25 11:23 08/21/25 11:25 Temperature 98 F Pulse Rate 87 86 Respiratory Rate 17 Blood Pressure 146/86 H 129/75 Pulse Oximetry 99 95 Oxygen Delivery Method Room Air 08/21/25 11:25 08/21/25 11:30 08/21/25 11:30 Temperature Pulse Rate 87 83 Respiratory Rate 12 22 Blood Pressure 137/77 Pulse Oximetry 94 92 Oxygen Delivery Method 08/21/25 12:00 08/21/25 12:00 08/21/25 12:30 Temperature Pulse Rate 74 74 Respiratory Rate 20 13 Blood Pressure 126/76 Pulse Oximetry 93 91 Oxygen Delivery Method 08/21/25 12:30 08/21/25 13:00 08/21/25 13:00 Temperature Pulse Rate 73 Respiratory Rate 23 Blood Pressure 137/75 153/109 H Pulse Oximetry 96 Oxygen Delivery Method 08/21/25 13:30 08/21/25 13:30 08/21/25 14:00 Temperature Pulse Rate 64 Respiratory Rate 21 Blood Pressure 139/96 H 126/75 Pulse Oximetry 93 Oxygen Delivery Method 08/21/25 14:00 08/21/25 14:30 08/21/25 14:30 Temperature Pulse Rate 66 64 Respiratory Rate 19 23 Blood Pressure 124/74 Pulse Oximetry 94 94 Oxygen Delivery Method 08/21/25 14:55 08/21/25 14:55 08/21/25 15:00 Temperature Pulse Rate 66 68 Respiratory Rate 19 18 Blood Pressure 126/67 Pulse Oximetry 94 93 Oxygen Delivery Method 08/21/25 15:00 Temperature Pulse Rate Respiratory Rate Blood Pressure 125/80 Pulse Oximetry Oxygen Delivery Method <Joi Will, - Last Filed: 08/22/25 07:50> Orders Ordered: Discontinued Medications Aspirin (Aspirin 81 Mg Chew Tab) 324 mg PO NOW ONE Stop: 08/21/25 10:59 Last Admin: 08/21/25 11:08 Dose: 324 mg Documented By: GABBIE Al Hydrox/Mg Hydrox/Simethicone 30 ml/ Lidocaine HCl 15 ml 0 ml PO NOW ONE Stop: 08/21/25 12:36 Last Admin: 08/21/25 13:23 Dose: Not Given Documented By: CESAR Famotidine (Famotidine 20 Mg/2 Ml Vial) 40 mg IV NOW MANI Last Admin: 08/21/25 13:10 Dose: 40 mg Documented By: CESAR Ketorolac Tromethamine (Ketorolac 30 Mg/Ml Vial) 15 mg IV NOW ONE Stop: 08/21/25 13:03 Last Admin: 08/21/25 13:10 Dose: 15 mg Documented By: CESAR Vital Signs Vital signs: Vital Signs - 8 hr 08/21/25 10:53 08/21/25 11:23 08/21/25 11:25 Temperature 98 F Pulse Rate 87 86 Respiratory Rate 17 Blood Pressure 146/86 H 129/75 Pulse Oximetry 99 95 Oxygen Delivery Method Room Air 08/21/25 11:25 08/21/25 11:30 08/21/25 11:30 Temperature Pulse Rate 87 83 Respiratory Rate 12 22 Blood Pressure 137/77 Pulse Oximetry 94 92 Oxygen Delivery Method 08/21/25 12:00 08/21/25 12:00 08/21/25 12:30 Temperature Pulse Rate 74 74 Respiratory Rate 20 13 Blood Pressure 126/76 Pulse Oximetry 93 91 Oxygen Delivery Method 08/21/25 12:30 08/21/25 13:00 08/21/25 13:00 Temperature Pulse Rate 73 Respiratory Rate 23 Blood Pressure 137/75 153/109 H Pulse Oximetry 96 Oxygen Delivery Method 08/21/25 13:30 08/21/25 13:30 08/21/25 14:00 Temperature Pulse Rate 64 Respiratory Rate 21 Blood Pressure 139/96 H 126/75 Pulse Oximetry 93 Oxygen Delivery Method 08/21/25 14:00 08/21/25 14:30 08/21/25 14:30 Temperature Pulse Rate 66 64 Respiratory Rate 19 23 Blood Pressure 124/74 Pulse Oximetry 94 94 Oxygen Delivery Method 08/21/25 14:55 08/21/25 14:55 08/21/25 15:00 Temperature Pulse Rate 66 68 Respiratory Rate 19 18 Blood Pressure 126/67 Pulse Oximetry 94 93 Oxygen Delivery Method 08/21/25 15:00 Temperature Pulse Rate Respiratory Rate Blood Pressure 125/80 Pulse Oximetry Oxygen Delivery Method MDM - Chest Pain <Venkata Bernal PA-C - Last Filed: 08/21/25 16:35> Lab Data 08/21/25 11:05 08/21/25 11:05 Labs: Lab Results 08/21/25 08/21/25 Range/Units 11:05 13:28 WBC 4.5 (4.5-11.0) X10^3/uL RBC 5.94 H (4.0-5.2) X10^6/uL Hgb 16.1 H (12.0-16.0) g/dL Hct 47.4 H (36-46) % MCV 79.8 L (80-100) fL MCH 27.1 (26-34) PG MCHC 34.0 (30-36) % RDW 13.8 (11.6-14.8) % Plt Count 208 (150-400) X10^3/uL Neut % (Auto) 43.5 L (50-75) % Lymph % (Auto) 45.3 H (25-40) % [place] % (Auto) 9.2 (3-14) % Eos % (Auto) 1.7 L (2-4) % Baso % (Auto) 0.3 (0-2) % Neut # (Auto) 1900 (8853-8103) /uL Lymph # (Auto) 2000 (6707-3473) /uL [place] # (Auto) 400 (0-900) /uL Eos # (Auto) 100 (0-450) /uL Baso # (Auto) 0 (0-100) /uL PT 11.1 (9.4-12.5) SECONDS INR 1.0 (0.9-1.3) APTT 27 (25.1-36.5) SECONDS Sodium 140 (137-145) mmol/L Potassium 4.0 (3.4-5.1) mmol/L Chloride 106 (98-107) mmol/L Carbon Dioxide 26 (22-32) mmol/L BUN 6 L (7-17) mg/dL Creatinine 0.65 (0.52-1.04) mg/dL Estimated GFR > 60 (>60) mL/min BUN/Creatinine Ratio 9.2 (6-22) Glucose 173 H (70-99) mg/dL Calcium 9.5 (8.4-10.2) mg/dL Magnesium 1.8 (1.6-2.3) mg/dL Total Bilirubin 0.5 (0.2-1.3) mg/dL AST 32 (14-36) IU/L ALT 35 H (<35) IU/L Alkaline Phosphatase 128 H (38-126) U/L Total Creatine Kinase 87 76 (30-135) U/L Troponin I < 0.012 < 0.012 (0.01-0.034) ng/mL NT-Pro-B Natriuret Pep < 20 (<125) pg/mL Total Protein 9.0 H (6.3-8.2) g/dL Albumin 4.7 (3.5-5.0) g/dL Globulin 4.3 H (1.7-4.1) g/dL Albumin/Globulin Ratio 1.1 (1.0-2.8) Lipase 176 (23-300) U/L MDM Narrative Medical decision making narrative: 64-year-old female with diabetes, hypertension presents to the ED with substernal chest pain since this morning. Concern for ACS versus GERD versus musculoskeletal sprain/strain versus other. Cardiopulmonary workup was obtained. Patient given GI cocktail, Pepcid, Toradol. EKG is normal sinus rhythm, no acute ST-T changes. Chest x-ray without acute cardiopulmonary abnormality. Labs within normal limits. BNP within normal limits. Troponin x2 within normal limits. Repeat EKG without changes from prior. Patient's symptoms improved with the medications. Recommend continuing Pepcid AC and Maalox for the next 2-4 weeks. Counseled patient on lifestyle modifications to minimize GERD. Recommend follow-up with PCP as soon as possible. ED return precautions discussed with patient. Patient verbalized understanding. Medical records reviewed: Yes <Joi Will, DO - Last Filed: 08/22/25 07:50> Lab Data Labs: Lab Results 08/21/25 08/21/25 Range/Units 11:05 13:28 WBC 4.5 (4.5-11.0) X10^3/uL RBC 5.94 H (4.0-5.2) X10^6/uL Hgb 16.1 H (12.0-16.0) g/dL Hct 47.4 H (36-46) % MCV 79.8 L (80-100) fL MCH 27.1 (26-34) PG MCHC 34.0 (30-36) % RDW 13.8 (11.6-14.8) % Plt Count 208 (150-400) X10^3/uL Neut % (Auto) 43.5 L (50-75) % Lymph % (Auto) 45.3 H (25-40) % [place] % (Auto) 9.2 (3-14) % Eos % (Auto) 1.7 L (2-4) % Baso % (Auto) 0.3 (0-2) % Neut # (Auto) 1900 (4752-8323) /uL Lymph # (Auto) 2000 (5245-0568) /uL [place] # (Auto) 400 (0-900) /uL Eos # (Auto) 100 (0-450) /uL Baso # (Auto) 0 (0-100) /uL PT 11.1 (9.4-12.5) SECONDS INR 1.0 (0.9-1.3) APTT 27 (25.1-36.5) SECONDS Sodium 140 (137-145) mmol/L Potassium 4.0 (3.4-5.1) mmol/L Chloride 106 (98-107) mmol/L Carbon Dioxide 26 (22-32) mmol/L BUN 6 L (7-17) mg/dL Creatinine 0.65 (0.52-1.04) mg/dL Estimated GFR > 60 (>60) mL/min BUN/Creatinine Ratio 9.2 (6-22) Glucose 173 H (70-99) mg/dL Calcium 9.5 (8.4-10.2) mg/dL Magnesium 1.8 (1.6-2.3) mg/dL Total Bilirubin 0.5 (0.2-1.3) mg/dL AST 32 (14-36) IU/L ALT 35 H (<35) IU/L Alkaline Phosphatase 128 H (38-126) U/L Total Creatine Kinase 87 76 (30-135) U/L Troponin I < 0.012 < 0.012 (0.01-0.034) ng/mL NT-Pro-B Natriuret Pep < 20 (<125) pg/mL Total Protein 9.0 H (6.3-8.2) g/dL Albumin 4.7 (3.5-5.0) g/dL Globulin 4.3 H (1.7-4.1) g/dL Albumin/Globulin Ratio 1.1 (1.0-2.8) Lipase 176 (23-300) U/L ECG Data Interpretation: EKG 1. Sinus rhythm rate of 91 SD 162 QRS is 76 QTC of [address]-elevation or depression noted. EKG 2. Shows a rate of 64, sinus rhythm SD 168 QRS 82 QTC of [address]-elevation depression noted. Discharge Plan Departure Patient Disposition: Home Clinical Impression: Chest pain Qualifiers: Chest pain type: unspecified Qualified Code(s): R07.9 - Chest pain, unspecified Instructions: DI for Atypical Chest Pain Activity Restrictions/Additional Instructions: You were evaluated in the emergency department today for chest pain and acidity. Your EKG chest x-ray labs were normal. It appears that your chest pain is musculoskeletal in origin due to lifting your grandchild. This will get better as you continue to take Tylenol and ibuprofen. For the acidity, your symptoms improved with Maalox and Pepcid AC. You may continue to take Pepcid AC twice a day for the next 2-4 weeks. You may also add on Maalox. There are some lifestyle changes that you can make for the acidity including smaller but more frequent meals, staying upright for 2-3 hours after you eat a meal before you lay down, avoiding acidity inducing foods such as coffee, fatty and spicy foods. Please follow-up with your primary care doctor as soon as possible for further evaluation. Please return to the ED if you have worsening symptoms such as worsening chest pain or shortness of breath. Prescriptions: No Action sucralfate 1 gram tablet 1 gram PO QACHS Qty: 40 0RF Referrals: Apple Abraham PA-C [Primary Care Provider, Medical] Stand Alone Forms: Patient Portal/API ED Sign-out <Joi Will, - Last Filed: 08/22/25 07:50> Cosign ED Attending Jonathan Attestation: I was immediately available in the department for consultation.
[2025-08-21 14:22] LABS: Creatine Kinase 76 U/L (30-135)
[2025-08-21 14:34] LABS: Troponin I < 0.012 ng/mL (0.01-0.034)
== END 2025-08-21 15:30 | disposition home or self-care (01) ==
PROVIDERS: Emergency Medicine; Emergency Provider Student in an Organized Health Care Education/Training Program; Family Provider Physician Assistant; PCP Physician Assistant
DX: R07.89 Other chest pain (principal); X50.0XXA Overexertion from strenuous movement or load, initial encounter
CPT/HCPCS: 36415; 71045; 80053; 82550; 83690; 83735; 83880; 84484; 85025; 85610; 85730; 93005; 93010; 96374; 96375; 99284; J1885